=== PATIENT | female | born 1985 | race Caucasian/White ===

== ENCOUNTER 2018-04-28 17:47 | Emergency (ER) | payer OTHER ==
[~2018-04-28] VITALS: Ht 167.6 cm; Wt 63.5 kg
[2018-04-28] MEDS ORDERED: PROTONIX 20 MG20 M1 PO (18:00)
[2018-04-28 18:23] LABS: HEMATOCRIT 48.9 % (37.0-47.0); HEMOGLOBIN 16.8 gm/dL (12.0-15.0); MCHC 34.3 g/dL (28.0-37.0); MCV 101.9 fL (80.0-100.0); MPV 8.6 fl. (7.2-11.1); NUCLEATED RBCS 0 /100WBC; PLATELET COUNT* 232 thou/uL (150-400); RDW-CV 13.4 % (10.5-14.5); WBC 11.4 thou/uL (4.0-11.0)
[2018-04-28] MEDS ORDERED: HYDROXYZINE HCL25 M2 PO (18:34)
[2018-04-28 18:42] LABS: ALBUMIN 4.2 g/dL (3.4-5.0); ALKALINE PHOSPHATASE 79 U/L (46-116); ANION GAP 16 mmol/L (7-16); BUN 11 mg/dL (7-18); CALCIUM 8.9 mg/dL (8.5-10.1); CHLORIDE 101 mmol/L (98-107); CO2 24 mmol/L (21-32); CREATININE 1.1 mg/dL (0.6-1.3); GLUCOSE 117 mg/dL (70-99); POTASSIUM 3.6 mmol/L (3.5-5.1); SGOT 43 U/L (15-37); SGPT 25 U/L (30-65); SODIUM 141 mmol/L (136-145); TOTAL BILIRUBIN 1.2 mg/dL (<0.1-1.0); TOTAL PROTEIN 8.2 g/dL (6.4-8.2); TROPONIN-I LEVEL <0.06 ng/mL (<0.06)
[2018-04-28] MEDS ORDERED: ONDANSETRON HCL4 M2 PO (18:45)
[2018-04-28 18:52] LABS: ABSOLUTE EOSINOPHILS 0.2 thou/uL (0.0-0.7); ABSOLUTE LYMPHOCYTES 0.7 thou/uL (0.8-5.3); ABSOLUTE MONOCYTES 0.5 thou/uL (0.0-1.2); PLATELET ESTIMATE ADEQUATE
[2018-04-28 19:11] VITALS: BP 136/98
--- NOTE | 2018-04-29 17:39 | EKG ---
[place] [address] ELECTROCARDIOGRAM REPORT Name: ELY GARZA Room: [facility]#: [id number] Admission: 04/28/18 Attend Phys: Discharge: 04/28/18 Date of : 81 Report #: [id number] THIS REPORT FOR: //name// [facility] ED Test Date: 2018-04-28 Test Time: 18:23:52 Pat Name: ELY GARZA Department: Room: Gender: F [employer]: : 1985 Requested By: Solange Ghotra Order Number: [id number] MD: Jeffrey Bingham Measurements Intervals [place] Rate: 82 P: 80 IN: 106 QRS: 72 QRSD: 89 T: 58 QT: 410 QTc: 479 Interpretive Statements Sinus rhythm Short IN interval Baseline wander in lead(s) V3 No previous ECG available for comparison Electronically Signed On 04-29-2018 17:38:57 CDT by Jeffrey Bingham [email or web address] <ELECTRONICALLY SIGNED> By: Jeffrey Bingham MD, [facility] 04/29/18 1738 D: [id number] Jeffrey Bingham MD, FACC /EPI
== END 2018-04-28 19:14 | disposition home or self-care (01) ==
LOC: M.ERS 17:47
PROVIDERS: Nurse Practitioner Family
DX: F41.9 Anxiety disorder, unspecified (principal); R11.2 Nausea with vomiting, unspecified; F32.9 Major depressive disorder, single episode, unspecified